=== PATIENT | female | born 1985 | race Caucasian/White ===

== ENCOUNTER 2019-09-06 16:00 | Emergency (ER) | payer BC ==
[~2019-09-06] VITALS: Ht 175.3 cm; Wt 68.0 kg
[2019-09-06] MEDS ORDERED: PRAZOSIN HCL1 MG PO (18:30)
[2019-09-06] MEDS ORDERED: TRAZODONE HCL50 MG PO (18:30)
[2019-09-06] MEDS ORDERED: VALACYCLOVIR1000 MG PO (18:31)
[2019-09-06] MEDS ORDERED: VENLAFAXINE HC150 MG PO (18:31)
[2019-09-06] MEDS ORDERED: LEVALBUTEROL TA15 GM INH (18:31)
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
== END 2019-09-06 16:43 | disposition left against medical advice (07) ==
LOC: ED 16:00
DX: Z53.21 Procedure and treatment not carried out due to patient leaving prior to being seen by health care provider (principal)

== ENCOUNTER 2020-05-19 07:37 | Day surgery (SDC) | payer BC ==
[~2020-05-19] VITALS: Ht 175.3 cm; Wt 83.4 kg
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
[~2020-05-19 07:37] MED LIST: LEVALBUTEROL TA15 GM INH; PRAZOSIN HCL1 MG PO; TRAZODONE HCL50 MG PO; VALACYCLOVIR1000 MG PO; VENLAFAXINE HC150 MG PO
[2020-05-19] MEDS ORDERED: PROPRANOLOL HCL10 MG PO (07:51)
[2020-05-19] MEDS ORDERED: PROMETHAZINE12.5 M1 PO (07:52)
--- NOTE | 2020-05-19 09:39 | NUR ---
05/19/20 0939 Solange Alcala 0949 PT ARRIVED TO PACU, PT REACTIVE TO VERBAL STIMULI AND IS REORIENTED TO PACU. PT EYES REMAIN CLOSED, VSS.
--- NOTE | 2020-05-20 11:29 | PATH ---
[facility] [address] [place], [place] [address] Signed SPECIMEN(S): A DUODENAL BIOPSY SPECIMEN(S): B PROXIMAL STOMACH BIOPSY SPECIMEN(S): C DISTAL ESOPHAGEAL BIOPSY SPECIMEN(S): D RECTUM BIOPSY SPECIMEN SOURCE: A. DUODENAL BIOPSY B. PROXIMAL STOMACH BIOPSY C. DISTAL ESOPHAGEAL BIOPSY D. RECTUM BIOPSY CLINICAL HISTORY: GERD, esophageal dysphagia, rectal bleeding, LLQ pain. Postop: Proximal gastritis, normal colon, internal hemorrhoids. MICROSCOPIC DESCRIPTION: Histologic sections of all submitted blocks are examined by light microscopy. These findings, together with the gross examination, support the pathologic diagnosis. FINAL PATHOLOGIC DIAGNOSIS: A. Duodenum, biopsy: - Duodenal mucosa with no histopathologic abnormality. - Negative for increased intraepithelial lymphocytes. - Negative for dysplasia or malignancy. B. Stomach, proximal, biopsy: - Oxyntic mucosa with mucosal capillary congestion and focal hemorrhage. - Negative for Helicobacter organisms on HE stain. - Negative for dysplasia or malignancy. C. Esophagus, distal, biopsy: - Squamous mucosa with chronic inflammation and reactive epithelial changes, consistent with reflux esophagitis. - Negative for intestinal metaplasia, dysplasia, or malignancy. D. Rectum, biopsy: - Rectal mucosa with no histopathologic abnormality. - Negative for active of chronic proctitis. - Negative for granulomata. - Negative for dysplasia or malignancy. NAL:cml:C2NR GROSS DESCRIPTION: Four specimens are received in four containers, labeled "AJ." PATIENT NAME: KRISTOPHERGENIACRISTOBAL MOSER PATHOLOGY DATE OF : 81 REPORT #: [id number] PHYSICIAN: DAWSON PATHOLOGY PCP: EDILBERTO HOWELL PA-C REPORT IS CONFIDENTIAL AND NOT TO BE RELEASED WITHOUT AUTHORIZATION [facility] [address] [place] [id number] Signed A. The specimen, labeled "AJ, duodenal biopsy," is received in formalin and consists of two bailey soft tissue fragments that measure 0.2 cm in greatest dimension. The specimen is entirely submitted in cassette (A1). B. The specimen, labeled "AJ, proximal stomach biopsy," is received in formalin and consists of two bailey soft tissue fragments that measure 0.1-0.2 cm in greatest dimension. The specimen is entirely submitted in cassette (B1). C. The specimen, labeled "AJ, distal esophagus biopsy," is received in formalin and consists of three bailey soft tissue fragments that measure 0.1-0.3 cm in greatest dimension. The specimen is entirely submitted in cassette (C1). D. The specimen, labeled "AJ, rectum biopsy," is received in formalin and consists of three bailey soft tissue fragments that measure 0.1-0.2 cm in greatest dimension. The specimen is entirely submitted in cassette (D1). JS (under the direct supervision of a pathologist) The Gross Description was prepared using a voice recognition system. The report was reviewed for accuracy; however, sound-alike word errors, addition and/or deletions may occur. If there is any question about this report, please contact Client Services. PERFORMING LABORATORY: The technical component was performed by [employer] [address] (Medical Clerk: Margarita Schmidt MD; CLIA# [id number]). [facility] [address] [address] (CLIA# [id number]). Diagnostician: Iesha Baca MD Pathologist Electronically Signed 05/20/2020 Copies: ~ PATIENT NAME: GENIA SUMMERS PATHOLOGY DATE OF : 81 REPORT #: [id number] PHYSICIAN: [facility] PATHOLOG[facility] PCP: EDILBERTO HOWELL PA-C REPORT IS CONFIDENTIAL AND NOT TO BE RELEASED WITHOUT AUTHORIZATION
== END 2020-05-19 10:24 | disposition home or self-care (01) ==
LOC: DS 07:37 → OPS 07:37 → DS 07:41 → OPS 08:30 → DS 08:30 → OPS 10:24
PROVIDERS: ATTEND Surgery
PROC: 0DB68ZX Excision of Stomach, Via Natural or Artificial Opening Endoscopic, Diagnostic (ICD-10-PCS; 2020-05-19)
PROC: 0DB38ZX Excision of Lower Esophagus, Via Natural or Artificial Opening Endoscopic, Diagnostic (ICD-10-PCS; 2020-05-19)
PROC: 0DBP8ZX Excision of Rectum, Via Natural or Artificial Opening Endoscopic, Diagnostic (ICD-10-PCS; principal; 2020-05-19 08:30)
PROC: 0DB98ZX Excision of Duodenum, Via Natural or Artificial Opening Endoscopic, Diagnostic (ICD-10-PCS; 2020-05-19 08:30)
DX: K62.5 Hemorrhage of anus and rectum (principal); K29.70 Gastritis, unspecified, without bleeding; K21.00 Gastro-esophageal reflux disease with esophagitis, without bleeding; K44.9 Diaphragmatic hernia without obstruction or gangrene; K64.8 Other hemorrhoids; K62.89 Other specified diseases of anus and rectum; J45.909 Unspecified asthma, uncomplicated; R13.19 Other dysphagia; F43.12 Post-traumatic stress disorder, chronic; Z79.1 Long term (current) use of non-steroidal anti-inflammatories (NSAID); Z79.899 Other long term (current) drug therapy
CPT/HCPCS: 99153; G0500; J2250; J3010; J7121

== ENCOUNTER 2020-08-03 10:36 | Emergency (ER) | payer BC ==
[~2020-08-03] VITALS: Ht 177.8 cm; Wt 81.6 kg
[~2020-08-03 10:36] MED LIST changes: +PROMETHAZINE12.5 M1 PO; +PROPRANOLOL HCL10 MG PO
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
[2020-08-03] MEDS ORDERED: NITROFURANTOIN100 M1 PO (10:42)
[2020-08-03] MEDS ORDERED: PHENAZOPYRIDIN100 MG PO (10:43)
[2020-08-03] MEDS ORDERED: PRAZOSIN HCL2 MG PO ×2 (10:44)
[2020-08-03] MEDS ORDERED: VENLAFAXINE HCL75 M1 PO (10:45)
[2020-08-03] MEDS ORDERED: MACROBID 100 M100 MG PO (10:59)
--- NOTE | 2020-08-04 06:40 | EKG ---
[facility] [address] [facility] [place], [place] [address] Signed Normal sinus rhythm Normal ECG No previous ECGs available Confirmed by SILVINA MCCOY MD ([id number]) on 08/04/2020 6:40:16 AM Electronically Signed By: SILVINA MCCOY MD 08/04/20 0640 PATIENT NAME: KRISTOPHERGENIA SHANTI Electrocardiogram DATE OF : 81 PHYSICIAN: SILVINA MCCOY MD REPORT #: [id number] REPORT IS CONFIDENTIAL AND NOT TO BE RELEASED WITHOUT AUTHORIZATION
== END 2020-08-03 14:30 | disposition home or self-care (01) ==
LOC: ED 10:36
DX: K59.00 Constipation, unspecified (principal); Q24.8 Other specified congenital malformations of heart; Z79.899 Other long term (current) drug therapy
CPT/HCPCS: 74177; 80053; 81001; 83690; 84703; 85025; 93005; 93010; 99284-25; Q9967